=== PATIENT | male | born 1990 | race American Indian/Alaskan Native ===

== ENCOUNTER 2018-07-04 16:47 | Emergency (ER) | payer OTHER ==
[2018-07-04] MEDS ORDERED: NACL 0.9% 1000 ML 1,000 ML IV ONE (16:56)
[2018-07-04 17:27] LABS: Basophils # (Auto) 0.1 K/mm3 (0.0-0.1); Basophils % (Auto) 1.1 % (0.0-1.8); Eosinophils # (Auto) 0.3 K/mm3 (0.0-0.4); Eosinophils % (Auto) 2.7 % (0.0-4.3); Hematocrit 43.5 % (35.5-45.6); Hemoglobin 14.1 gm/dl (11.8-15.2); Lymphocytes # (Auto) 2.7 K/mm3 (1.2-5.4); Lymphocytes % (Auto) 26.7 % (13.4-35.0); Mean Corpuscular HGB Conc 33 % (32-34); Mean Corpuscular Volume 79 fl (84-94); Monocytes # (Auto) 0.9 K/mm3 (0.0-0.8); Platelet Count 207 K/mm3 (140-440); Red Blood Count 5.49 M/mm3 (3.65-5.03); Red Cell Distribution Width 14.8 % (13.2-15.2)
[2018-07-04 18:08] LABS: Alanine Aminotransferase 16 units/L (7-56); Albumin 4.2 g/dL (3.9-5); BUN/Creatinine Ratio 15; Blood Urea Nitrogen 15 mg/dL (9-20); Calcium 8.9 mg/dL (8.4-10.2); Hemolysis Index 3
[2018-07-04 19:46] LABS: Bilirubin,Urine NEG (Negative); Blood,Urine NEG (Negative); Color,Urine Yellow (Yellow); Mucus,Urine FEW /HPF; Protein,Urine <15 mg/dL mg/dL (Negative)
--- NOTE | 2018-07-04 22:45 | Emergency Department Report ---
ED Abdominal Pain HPI - General Chief Complaint: Abdominal Pain Stated Complaint: ABD PAIN/COUGHING BLOOD Time Seen by Provider: 07/04/18 21:01 Source: patient Mode of arrival: Ambulatory Limitations: No Limitations - History of Present Illness Initial Comments: 27-year-old -Citizen Of [place] male with a past medical history of HIV currently Genvoya comes in complaining of abdominal pain with nausea and diarrhea 1 week. Patient reports he has had no diarrhea in the last 2 days. He reports is still having abdominal pain is constant and sharp. Patient reports that the decrease in appetite sore throat. Patient denies any fever reports he has pain with swallowing. Patient reports he has no abdominal pain at this moment. Patient reports that he is followed by Dr. Mancera at length the AIDS. MD Complaint: abdominal pain -: week(s) (1) Location: suprapubic, R flank Radiation: suprapubic Severity: severe Severity scale (0 -10): 8 Quality: sharp Consistency: constant Improves With: nothing Worsens With: nothing Associated Symptoms: nausea, diarrhea - Related Data Home Medications Medication Instructions Recorded Confirmed Last Taken Elviteg/Cob/Emtri/Tenofo Disop 1 each PO DAILY 08/20/14 08/20/14 08/19/14 [Stribild Tablet] Previous Rx's Medication Instructions Recorded Last Taken Type Promethazine [Phenergan] 25 mg PO Q6H PRN #14 tablet 08/20/14 Unknown Rx Acetaminophen/Codeine [Tylenol #3] 1 tab PO Q6H PRN #20 tab 10/29/15 Unknown Rx Cyclobenzaprine [Flexeril] 10 mg PO TID PRN #30 tablet 10/29/15 Unknown Rx Ibuprofen [Motrin 600 MG tab] 600 mg PO Q8H PRN #40 tablet 10/29/15 Unknown Rx Doxycycline [Vibramycin CAP] 100 mg PO Q12HR 7 Days #14 capsule 07/05/18 Unknown Rx Allergies Allergy/AdvReac Type Severity Reaction Status Date / Time No Known Allergies Allergy Unverified 08/20/14 15:39 ED Review of Systems ROS: Stated complaint: ABD PAIN/COUGHING BLOOD Other details as noted in HPI Comment: All other systems reviewed and negative ENT: throat pain Gastrointestinal: abdominal pain, nausea, diarrhea Genitourinary: dysuria (resolved), testicular pain (3 days ago). denies: urgency, frequency, hematuria, discharge ED Past Medical Hx - Past Medical History Hx Asthma: Yes Hx HIV: Yes - Surgical History Additional Surgical History: hernia repair age 12 - Social History Smoking Status: Current Every Day Smoker Substance Use Type: Alcohol - Medications Home Medications: Home Medications Medication Instructions Recorded Confirmed Last Taken Type Elviteg/Cob/Emtri/Tenofo Disop 1 each PO DAILY 08/20/14 08/20/14 08/19/14 History [Stribild Tablet] Promethazine [Phenergan] 25 mg PO Q6H PRN #14 tablet 08/20/14 Unknown Rx Acetaminophen/Codeine [Tylenol #3] 1 tab PO Q6H PRN #20 tab 10/29/15 Unknown Rx Cyclobenzaprine [Flexeril] 10 mg PO TID PRN #30 tablet 10/29/15 Unknown Rx Ibuprofen [Motrin 600 MG tab] 600 mg PO Q8H PRN #40 tablet 10/29/15 Unknown Rx Doxycycline [Vibramycin CAP] 100 mg PO Q12HR 7 Days #14 capsule 07/05/18 Unknown Rx ED Physical Exam - General Limitations: No Limitations General appearance: alert, in no apparent distress - Head Head exam: Present: atraumatic, normocephalic - Eye Eye exam: Present: EOMI - ENT ENT exam: Present: mucous membranes moist, TM's normal bilaterally - Expanded ENT Exam Expanded Throat exam: Negative: tonsillar erythema, tonsillomegaly, tonsillar exudate - Neck Neck exam: Present: normal inspection - Respiratory Respiratory exam: Present: normal lung sounds bilaterally. Absent: respiratory distress - Cardiovascular Cardiovascular Exam: Present: regular rate, normal rhythm. Absent: systolic murmur, diastolic murmur, rubs, gallop - GI/Abdominal GI/Abdominal exam: Present: soft, normal bowel sounds. Absent: distended, tenderness, guarding, rebound - Rectal Rectal exam: Present: decreased rectal tone, prostate tenderness. Absent: hemorrhoids, mass, tenderness - exam: Present: normal inspection, circumcision. Absent: testicular tenderness, urethral discharge External exam: Present: normal external exam. Absent: erythema, swelling - Extremities Exam Extremities exam: Present: normal inspection, full ROM - Back Exam Back exam: Present: normal inspection. Absent: CVA tenderness (L) - Neurological Exam Neurological exam: Present: alert, oriented X3 - Psychiatric Psychiatric exam: Present: normal affect, normal mood - Skin Skin exam: Present: warm, dry, intact, normal color. Absent: rash ED Course Vital Signs 07/04/18 16:54 Temperature 98.4 F Pulse Rate 78 Respiratory 18 Rate Blood Pressure 160/91 O2 Sat by Pulse 98 Oximetry ED Medical Decision Making - Lab Data Result diagrams: 07/04/18 17:12 07/04/18 17:12 - Medical Decision Making Patient has been evaluated by this provider and faster. Labs are within normal limits. CT has been ordered of abdomen and pelvic. Critical care attestation.: If time is entered above; I have spent that time in minutes in the direct care of this critically ill patient, excluding procedure time. ED Disposition Clinical Impression: Proctocolitis Disposition: - TO HOME OR SELFCARE Is pt being admited?: No Does the pt Need Aspirin: No Condition: Stable Instructions: Proctitis (ED) Additional Instructions: Please complete antibiotics as prescribed. Please refrain from intercourse for 2 weeks. You may return back to Hospital medical records with her ID to obtain your results. These continue with her chronic medication and follow-up with [facility] infectious disease provider. Prescriptions: Doxycycline [Vibramycin CAP] 100 mg PO Q12HR 7 Days #14 capsule Referrals: PRIMARY CARE, [Primary Care Provider] - 3-5 Days Forms: Work/School Release Form(ED), Accompanied Note
--- NOTE | 2018-07-04 23:17 | Cat Scan Report ---
FINAL REPORT PROCEDURE: CT ABDOMEN PELVIS WO CON TECHNIQUE: Computerized axial tomography of the abdomen and pelvis was performed without intravenous contrast. HISTORY: right flank pain that radiates to suprapubic COMPARISON: No prior studies are available for comparison. FINDINGS: Visualized lower thorax: No significant abnormality. Liver: Normal size and attenuation. Spleen: Normal size and attenuation. Gallbladder and biliary system: Normal. Pancreas: Normal. Adrenals: Normal. Kidneys: Normal. No stones or hydronephrosis. GI tract: Normal. No dilated loops of large or small bowel. There is wall thickening of the distal co gricelda. Appendix is not visualized. Lymph nodes and mesentery: Normal. Vasculature: Normal. Bladder: Normal. Reproductive organs: Normal. Peritoneum: No free fluid. Musculoskeletal structures: No significant abnormality. Other: None. IMPRESSION: No obstruction. Wall thickening of the distal colon with infectious or inflammatory proctocolitis.
[2018-07-05] MEDS ORDERED: ROCEPHIN IM ONE (00:23)
[2018-07-05] MEDS ORDERED: ZITHROMAX PO ONE (00:23)
[2018-07-05] MEDS ORDERED: XYLOCAINE 1% MPF 5 mL INFILTRATI ONE (00:23)
[2018-07-05 01:56] VITALS: BP 140/88
== END 2018-07-05 01:56 | disposition home or self-care (01) ==
LOC: ED 16:47
DX: K51.30 Ulcerative (chronic) rectosigmoiditis without complications (principal); J45.909 Unspecified asthma, uncomplicated; F17.200 Nicotine dependence, unspecified, uncomplicated; Z21 Asymptomatic human immunodeficiency virus [HIV] infection status
CPT/HCPCS: 36415; 74176; 80053; 81001; 83690; 85025; 87591; 96372; 99284; J0696